=== PATIENT | female | born 1985 | race Caucasian/White ===

== ENCOUNTER 2017-01-26 20:57 | Emergency (ER) | payer OTHER ==
[~2017-01-26 20:57] MED LIST: HYDROXYZINE50 M1; LORATADINE10 MG PO; MEDDP PO; PREDNISONE1 MG; PROAIR HFA0.09 MG/A1; SING10 PO; ZIT250 PO; ZOC10 PO
[2017-01-27 00:47] LABS: BASOPHIL % 0.3 % (0-2); PLATELET COUNT 338 x10^3mcL (130-400); RED CELL DISTRIBUTION WIDTH 13.7 % (11.5-14.5)
[2017-01-27 00:50] LABS: CALCIUM 8.6 mg/dL (8.5-10.1); CARBON DIOXIDE 27.7 mmol/L (21-32); CHLORIDE SERUM 106 mmol/L (98-107); CREATININE SERUM 0.8 mg/dL (0.6-1.0); GFR1 > 60 mL/min; GLUCOSE SERUM 91 mg/dL (74-106); POTASSIUM SERUM 3.9 mmol/L (3.5-5.1); SODIUM SERUM 144 mmol/L (136-145)
[2017-01-27 00:54] LABS: ALBUMIN 3.5 g/dL (3.4-5.0); ALKALINE PHOSPHATASE 71 U/L (46-116); ALT/SGPT 30 U/L (14-59); AST/SGOT 14 U/L (15-37); BILIRUBIN TOTAL 0.28 mg/dL (0.20-1.00); CHOLESTEROL 164 mg/dL (<200); CHOLESTEROL/HDL RATIO 3.4; HDL CHOLESTEROL 48 mg/dL (40-60); LIPASE 115 IU/L (73-393); TRIGLYCERIDES 110 mg/dL (<150)
[2017-01-27 01:03] LABS: T3 TOTAL 1.57 ng/mL
[2017-01-27 01:09] LABS: FREE T4 1.33 ng/dL (0.76-1.46); FREE THYROXINE INDEX 3.3 ug/dL (1.4-4.5); T4(THYROXINE) 9.9 ug/dL (4.7-13.3)
[2017-01-27 01:21] LABS: microscopic required? YES; urine erythrocyte TRACE (NEGATIVE)
[2017-01-27 05:33] VITALS: BP 108/61
== END 2017-01-27 05:33 | disposition home or self-care (01) ==
LOC: ED 20:57
PROVIDERS: Specialist
DX: R07.89 Other chest pain (principal); J45.909 Unspecified asthma, uncomplicated; Z88.5 Allergy status to narcotic agent
CPT/HCPCS: 83880; 84439; J1885; J7030; Q9967

== ENCOUNTER 2019-08-25 22:39 | Emergency (ER) | payer OTHER ==
[~2019-08-25] VITALS: Ht 167.6 cm; Wt 132.9 kg
[2019-08-25 23:11] VITALS: Ht 167.6 cm; Wt 132.9 kg
[2019-08-26 00:59] VITALS: BP 120/66
== END 2019-08-26 00:55 | disposition home or self-care (01) ==
LOC: ED 22:39
DX: R05 Cough (principal); R07.89 Other chest pain; J45.909 Unspecified asthma, uncomplicated; Z90.49 Acquired absence of other specified parts of digestive tract
CPT/HCPCS: J1885